=== PATIENT | male | born 1985 | race American Indian/Alaskan Native ===

== ENCOUNTER 2016-06-27 17:43 | Emergency (ER) | payer OTHER ==
[2016-06-27 19:09] LABS: CHLORIDE,CL 103 mmol/L (98-110); SODIUM,NA 139 mmol/L (136-146)
[2016-06-27] MEDS: Ketorolac 30 MG/ML SDV IVPUSH ONE (19:29)
--- NOTE | 2016-06-27 19:54 | EDM.PDOC ---
ED HPI GENERAL MEDICAL PROBLEM - General Chief Complaint: Flank Pain Stated Complaint: PT RT SIDE HURT Time Seen by Provider: 06/27/16 18:50 Source of Information: Reports: Patient - History of Present Illness INITIAL COMMENTS - FREE TEXT/NARRATIVE: HISTORY AND PHYSICAL: History of present illness: Patient is a thin 31-year-old male who presents to the emergency department for return of his right abdominal and flank pain. It started this morning when he woke up and has been persistent. He states he abdominal part of his pain as cramping it comes and goes his more flank and back pain has been constant. He denies any associated symptoms with this. He has had his appendix out. He denies fevers or chills. No nausea or vomiting. No pain with urination, penile discharge or blood in the urine. He has been here 3 or 4 times in the last several months for evaluation of this and seems frustrated that he states being told that it is "viral" or that they cannot find anything wrong. He has not followed up with primary care. He states he has an appointment on the . He takes Klonopin for his anxiety and has used a little bit of Tylenol for his symptoms which didn't really help. Review of systems: As per history of present illness and below otherwise all systems reviewed and negative. Past medical history: As per history of present illness and as reviewed below otherwise noncontributory. Surgical history: As per history of present illness and as reviewed below otherwise noncontributory. Social history: No reported history of drug or alcohol abuse. Family history: As per history of present illness and as reviewed below otherwise noncontributory. Physical exam: HEENT: Atraumatic, normocephalic, pupils reactive, negative for conjunctival pallor or scleral icterus, mucous membranes moist, throat clear, neck supple, nontender, trachea midline. Lungs: Clear to auscultation, breath sounds equal bilaterally, chest nontender. Heart: S1S2, regular, negative for clicks, rubs, or JVD. Abdomen: Soft, nondistended, right lower quadrant tenderness. Right CVA tenderness. Back: No deformities or abnormalities although the patient does complain of tenderness in the low back with palpation. His reaction seemed out of proportion to my evaluation. Pelvis: Stable nontender. Genitourinary: Deferred. Rectal: Deferred. Extremities: Atraumatic. Neurovascular unremarkable. Neuro: Awake, alert, oriented. Cranial nerves II through XII unremarkable. Cerebellum unremarkable. Motor and sensory unremarkable throughout. Exam nonfocal. Diagnostics: UA, CBC, CMP Therapeutics: Toradol, diclofenac Impression: Chronic abdominal and flank pain Plan: Patient normal vital signs and somewhat unremarkable exam with an appendectomy. Urine was clear and her blood work was completely normal. This is the third fourth time he has been seen for these symptoms I do not feel an additional CT scan is warranted. I the patient needs followup with primary care and then determine if he needs urology followup for GI do not feel there is any emergent or infectious cause of the symptoms that need further management. I did give him diclofenac to help with symptoms. Definitive disposition and diagnosis as appropriate pending reevaluation and review of above. - Related Data Allergies Allergy/AdvReac Type Severity Reaction Status Date / Time codeine Allergy Hives Verified 06/27/16 17:58 Home Meds: Home Meds ClonazePAM [KlonoPIN] 1 tab PO PRN 12/24/15 [History] Past Medical History HEENT History: Reports: None Cardiovascular History: Reports: Heart murmur Respiratory History: Reports: None Gastrointestinal History: Reports: Other (see below) Other Gastrointestinal History: perforated ulcer Neurological History: Reports: None Psychiatric History: Reports: ADD, Anxiety, Depression Endocrine/Metabolic History: Reports: None Dermatologic History: Reports: None - Past Surgical History HEENT Surgical History: Reports: None Other GI Surgeries/Procedures: explor lap Social & Family History - Family History Family Medical History: Noncontributory - Tobacco Use Smoking Status *Q: Current Every Day Smoker Years of Tobacco use: 15 Packs/Tins Daily: 1 Second Hand Smoke Exposure: No - Caffeine Use Caffeine Use: Reports: Tea - Alcohol Use Days Per Week of Alcohol Use: 5 Number of Drinks Per Day: 6 Total Drinks Per Week: 30 - Recreational Drug Use Recreational Drug Use: No ED ROS GENERAL - Review of Systems Review Of Systems: ROS reveals no pertinent complaints other than HPI. ED EXAM, GENERAL - Physical Exam Exam: See Below (See history of present illness) Course - Vital Signs Last Recorded V/S: Last Vital Signs Temp 37.7 C 06/27/16 19:50 Pulse 61 06/27/16 19:50 Resp 18 06/27/16 17:58 BP 132/78 06/27/16 19:50 Pulse Ox 95 06/27/16 17:58 - Orders/Labs/Meds Labs: Laboratory Tests 06/27/16 06/27/16 06/27/16 Range/Units 18:30 18:30 18:30 WBC 7.60 (4.0-11.0) K/uL RBC 4.58 (4.50-5.90) M/uL Hgb 14.8 (13.0-17.0) g/dL Hct 43.5 (38.0-50.0) % MCV 95.0 (80.0-98.0) fL MCH 32.3 H (27.0-32.0) pg MCHC 34.0 (31.0-37.0) g/dL RDW Std Deviation 46.0 (28.0-62.0) fl RDW Coeff of Buck 13 (11.0-15.0) % Plt Count 202 (150-400) K/uL MPV 9.30 (7.40-12.00) fL Neut % (Auto) 61.3 (48.0-80.0) % Lymph % (Auto) 25.3 (16.0-40.0) % [place] % (Auto) 10.4 (0.0-15.0) % Eos % (Auto) 2.6 (0.0-7.0) % Baso % (Auto) 0.4 (0.0-1.5) % Neut # (Auto) 4.7 (1.4-5.7) K/uL Lymph # (Auto) 1.9 (0.6-2.4) K/uL [place] # (Auto) 0.8 (0.0-0.8) K/uL Eos # (Auto) 0.2 (0.0-0.7) K/uL Baso # (Auto) 0.0 (0.0-0.1) K/uL Nucleated RBC % 0.0 /100WBC Nucleated RBCs # 0 K/uL Sodium 139 (136-146) mmol/L Potassium 3.9 (3.5-5.1) mmol/L Chloride 103 (98-110) mmol/L Carbon Dioxide 26 (21-31) mmol/L BUN 11 (6.0-23.0) mg/dL Creatinine 1.0 (0.6-1.5) mg/dL Est Cr Clr Drug Dosing 101.75 mL/min Estimated GFR (MDRD) > 60.0 ml/min Glucose 88 (60-110) mg/dL Calcium 8.9 (8.8-10.8) mg/dL Total Bilirubin 0.6 (0.1-1.5) mg/dL AST 20 (5-40) IU/L ALT 13 (8-54) IU/L Alkaline Phosphatase 77 (40-150) Total Protein 7.6 (6.0-8.0) g/dL Albumin 4.3 (3.5-5.0) g/dL Globulin 3.3 (2.0-3.5) g/dL Albumin/Globulin Ratio 1.3 (1.3-2.8) Urine Color YELLOW Urine Appearance CLEAR Urine pH 7.0 (5.0-8.0) Ur Specific [place] 1.010 (1.001-1.035) Urine Protein NEGATIVE (NEGATIVE) mg/dL Urine Glucose (UA) NEGATIVE (NEGATIVE) mg/dL Urine Ketones NEGATIVE (NEGATIVE) mg/dL Urine Occult Blood NEGATIVE (NEGATIVE) Urine Nitrite NEGATIVE (NEGATIVE) Urine Bilirubin NEGATIVE (NEGATIVE) Urine Urobilinogen 0.2 (<2.0) EU/dL Ur Leukocyte Esterase NEGATIVE (NEGATIVE) Urine RBC 0-1 (0-2/HPF) Urine WBC 0-1 (0-5/HPF) Ur Epithelial Cells RARE (NONE-FEW) Urine Bacteria RARE (NEGATIVE) Meds: Medications Discontinued Medications Generic Name Dose Route Start Last Admin Trade Name Freq PRN Reason Stop Dose Admin Ketorolac Tromethamine 30 mg 06/27/16 19:24 06/27/16 19:29 Toradol IVPUSH 06/27/16 19:25 30 mg ONETIME ONE Administration Departure - Departure Time of Disposition: 19:53 Disposition: Home, Self-Care 01 Condition: good Clinical Impression: Chronic right flank pain Instructions: Flank Pain, [id number] Referrals: PCP,None [Primary Care Provider] - Forms: ED Department Discharge Additional Instructions: The following information is given to patients seen in the emergency department who are being discharged to home. This information is to outline your options for follow-up care. We provide all patients seen in our emergency department with a follow-up referral. The need for follow-up, as well as the timing and circumstances, are variable depending upon the specifics of your emergency department visit. If you don't have a primary care physician on staff, we will provide you with a referral. We always advise you to contact your personal physician following an emergency department visit to inform them of the circumstance of the visit and for follow-up with them and/or the need for any referrals to a consulting specialist. The emergency department will also refer you to a specialist when appropriate. This referral assures that you have the opportunity for follow-up care with a specialist. All of these measure are taken in an effort to provide you with optimal care, which includes your follow-up. Under all circumstances we always encourage you to contact your private physician who remains a resource for coordinating your care. When calling for follow-up care, please make the office aware that this follow-up is from your recent emergency room visit. If for any reason you are refused follow-up, please contact the [facility] Emergency Department at and asked to speak to the emergency department charge nurse. [facility] [address] [place] [id number]
[2016-06-27 20:45] VITALS: BP 135/77
== END 2016-06-27 20:10 | disposition home or self-care (01) ==
LOC: MW.ED 17:43
DX: R10.9 Unspecified abdominal pain (principal); G89.29 Other chronic pain; F41.8 Other specified anxiety disorders; F17.210 Nicotine dependence, cigarettes, uncomplicated; Z88.5 Allergy status to narcotic agent
CPT/HCPCS: 36415; 80053; 81001; 85025; 96374; 99284; J1885

== ENCOUNTER 2016-09-03 10:31 | Emergency (ER) | payer OTHER ==
--- NOTE | 2016-09-03 10:59 | EDM.PDOC ---
ED HPI GENERAL MEDICAL PROBLEM - General Chief Complaint: General Stated Complaint: PAIN IN SIDE Time Seen by Provider: 09/03/16 10:40 Source of Information: Reports: Patient History Limitations: Reports: No Limitations - History of Present Illness INITIAL COMMENTS - FREE TEXT/NARRATIVE: History of present illness: [31-year-old male coming in complaining of right-sided flank pain. Patient indicates that he has come to be seen repeatedly for this pain and that won't go away and it just gets worse and he desires further evaluation.] Review of systems: As per history of present illness and below otherwise all systems reviewed and negative. Past medical history: As per history of present illness and as reviewed below otherwise noncontributory. Surgical history: As per history of present illness and as reviewed below otherwise noncontributory. Social history: No reported history of drug or alcohol abuse. Family history: As per history of present illness and as reviewed below otherwise noncontributory. Physical exam: HEENT: Atraumatic, normocephalic, pupils reactive, negative for conjunctival pallor or scleral icterus, mucous membranes moist, throat clear, neck supple, nontender, trachea midline. Lungs: Clear to auscultation, breath sounds equal bilaterally, chest nontender. Heart: S1S2, regular, negative for clicks, rubs, or JVD. Abdomen: Soft, nondistended, nontender. Negative for masses or hepatosplenomegaly. Negative for costovertebral tenderness. Pelvis: Stable nontender. Genitourinary: Deferred. Rectal: Deferred. Extremities: Atraumatic, negative for cords or calf pain. Neurovascular unremarkable. Neuro: Awake, alert, oriented. Cranial nerves II through XII unremarkable. Cerebellum unremarkable. Motor and sensory unremarkable throughout. Exam nonfocal. Patient indicates that right side is to painful for palpation and that the pain has been off and on for several months but that now the tenderness is exquisite and he can't tolerate it any longer. Light of the negative CT and patient's very physical labor pain comes and goes and can be quite sharp would be consistent with muscle pain Diagnostics: [CBC, CMP, CT of abdomen and pelvis] Therapeutics: [] Impression: [Muscle spasm] Plan: [Muscle relaxer followup with PCP] Definitive disposition and diagnosis as appropriate pending reevaluation and review of above. right flank pain Pain Score (Numeric/FACES): 6 - Related Data Allergies Allergy/AdvReac Type Severity Reaction Status Date / Time codeine Allergy Hives Verified 09/03/16 10:43 Home Meds: Home Meds ClonazePAM [KlonoPIN] 1 mg PO DAILY PRN 12/24/15 [History] Past Medical History HEENT History: Reports: None Cardiovascular History: Reports: Heart Murmur Respiratory History: Reports: None Gastrointestinal History: Reports: Other (See Below) Other Gastrointestinal History: "perf ulcer" Neurological History: Reports: None Psychiatric History: Reports: ADD, Anxiety, Depression Endocrine/Metabolic History: Reports: None Dermatologic History: Reports: None - Past Surgical History HEENT Surgical History: Reports: None Social & Family History - Family History Family Medical History: Noncontributory - Tobacco Use Smoking Status *Q: Current Every Day Smoker Years of Tobacco use: 10 Packs/Tins Daily: 0.5 Second Hand Smoke Exposure: No - Caffeine Use Caffeine Use: Reports: Soda - Alcohol Use Days Per Week of Alcohol Use: 5 Number of Drinks Per Day: 6 Total Drinks Per Week: 30 - Recreational Drug Use Recreational Drug Use: No ED ROS GENERAL - Review of Systems Review Of Systems: See Below (History of present illness) ED EXAM, GENERAL - Physical Exam Exam: See Below (See history of present illness) Course - Vital Signs Last Recorded V/S: Last Vital Signs Temp 37.1 C 09/03/16 10:45 Pulse 102 H 09/03/16 10:45 Resp 18 09/03/16 10:45 BP 139/95 H 09/03/16 10:45 Pulse Ox 98 09/03/16 10:45 - Orders/Labs/Meds Orders: Active Orders 24 hr Category Date Time Status Abdomen Pelvis wo Cont [CT] Stat Exams 09/03/16 11:00 Taken Labs: Laboratory Tests 09/03/16 09/03/16 09/03/16 Range/Units 11:13 11:13 12:01 WBC 5.22 (4.0-11.0) K/uL RBC 4.93 (4.50-5.90) M/uL Hgb 16.2 (13.0-17.0) g/dL Hct 47.0 (38.0-50.0) % MCV 95.3 (80.0-98.0) fL MCH 32.9 H (27.0-32.0) pg MCHC 34.5 (31.0-37.0) g/dL RDW Std Deviation 46.0 (28.0-62.0) fl RDW Coeff of Buck 13 (11.0-15.0) % Plt Count 199 (150-400) K/uL MPV 9.20 (7.40-12.00) fL Neut % (Auto) 72.8 (48.0-80.0) % Lymph % (Auto) 17.6 (16.0-40.0) % [place] % (Auto) 7.3 (0.0-15.0) % Eos % (Auto) 1.9 (0.0-7.0) % Baso % (Auto) 0.4 (0.0-1.5) % Neut # (Auto) 3.8 (1.4-5.7) K/uL Lymph # (Auto) 0.9 (0.6-2.4) K/uL [place] # (Auto) 0.4 (0.0-0.8) K/uL Eos # (Auto) 0.1 (0.0-0.7) K/uL Baso # (Auto) 0.0 (0.0-0.1) K/uL Nucleated RBC % 0.0 /100WBC Nucleated RBCs # 0 K/uL Sodium 140 (136-146) mmol/L Potassium 4.0 (3.5-5.1) mmol/L Chloride 107 (98-110) mmol/L Carbon Dioxide 20 L (21-31) mmol/L BUN 11 (6.0-23.0) mg/dL Creatinine 1.0 (0.6-1.5) mg/dL Est Cr Clr Drug Dosing 97.02 mL/min Estimated GFR (MDRD) > 60.0 ml/min Glucose 92 (60-110) mg/dL Calcium 8.9 (8.8-10.8) mg/dL Total Bilirubin 0.5 (0.1-1.5) mg/dL AST 23 (5-40) IU/L ALT 17 (8-54) IU/L Alkaline Phosphatase 92 (40-150) Total Protein 8.0 (6.0-8.0) g/dL Albumin 4.9 (3.5-5.0) g/dL Globulin 3.1 (2.0-3.5) g/dL Albumin/Globulin Ratio 1.6 (1.3-2.8) Urine Color YELLOW Urine Appearance CLEAR Urine pH 5.5 (5.0-8.0) Ur Specific [place] 1.025 (1.001-1.035) Urine Protein NEGATIVE (NEGATIVE) mg/dL Urine Glucose (UA) NEGATIVE (NEGATIVE) mg/dL Urine Ketones NEGATIVE (NEGATIVE) mg/dL Urine Occult Blood NEGATIVE (NEGATIVE) Urine Nitrite NEGATIVE (NEGATIVE) Urine Bilirubin NEGATIVE (NEGATIVE) Urine Urobilinogen 0.2 (<2.0) EU/dL Ur Leukocyte Esterase NEGATIVE (NEGATIVE) Urine RBC 0-1 (0-2/HPF) Urine WBC 0-1 (0-5/HPF) Ur Epithelial Cells OCCASIONAL (NONE-FEW) Amorphous Sediment LIGHT (NEGATIVE) Urine Bacteria FEW (NEGATIVE) Urine Mucus MODERATE (NONE-MOD) Meds: Medications Discontinued Medications Generic Name Dose Route Start Last Admin Trade Name Freq PRN Reason Stop Dose Admin Sodium Chloride 1,000 mls @ 999 mls/hr 09/03/16 11:00 09/03/16 11:16 Normal Saline IV 09/03/16 12:00 999 mls/hr STAT ONE Administration Ketorolac Tromethamine 30 mg 09/03/16 11:00 09/03/16 11:15 Toradol IVPUSH 09/03/16 11:01 30 mg ONETIME ONE Administration Departure - Departure Time of Disposition: 12:26 Disposition: Home, Self-Care 01 Condition: good Clinical Impression: Chronic right flank pain - Discharge Information Forms: ED Department Discharge Additional Instructions: The following information is given to patients seen in the emergency department who are being discharged to home. This information is to outline your options for follow-up care. We provide all patients seen in our emergency department with a follow-up referral. The need for follow-up, as well as the timing and circumstances, are variable depending upon the specifics of your emergency department visit. If you don't have a primary care physician on staff, we will provide you with a referral. We always advise you to contact your personal physician following an emergency department visit to inform them of the circumstance of the visit and for follow-up with them and/or the need for any referrals to a consulting specialist. The emergency department will also refer you to a specialist when appropriate. This referral assures that you have the opportunity for follow-up care with a specialist. All of these measure are taken in an effort to provide you with optimal care, which includes your follow-up. Under all circumstances we always encourage you to contact your private physician who remains a resource for coordinating your care. When calling for follow-up care, please make the office aware that this follow-up is from your recent emergency room visit. If for any reason you are refused follow-up, please contact the [facility] Emergency Department at and asked to speak to the emergency department charge nurse. Take medication as directed Followup with PCP in one to 2 days Return to ED as needed as discussed - My Orders Last 24 Hours: My Active Orders 09/03/16 11:00 Abdomen Pelvis wo Cont [CT] Stat - Assessment/Plan Last 24 Hours: My Active Orders 09/03/16 11:00 Abdomen Pelvis wo Cont [CT] Stat
[2016-09-03] MEDS ORDERED: Sodium Chloride 0.9% 1,000 ML IV ONE (11:00)
[2016-09-03] MEDS ORDERED: Ketorolac 30 MG/ML SDV IVPUSH ONE (11:00)
[2016-09-03 11:45] LABS: CHLORIDE,CL 107 mmol/L (98-110); SODIUM,NA 140 mmol/L (136-146)
[2016-09-03 12:40] VITALS: BP 135/83
--- NOTE | 2016-09-04 14:01 | CT ---
EXAM DATE: 09/03/16 PATIENT'S AGE: 31 Patient: NAN ALAN Facility: [place], [place] Site . Site : 1985 Study: CT Abdomen/Pelvis [id number]/29/2017 11:30:25 AM Ordering Physician: Doctor Brasher Final Report: INDICATION: RT SIDED FLANK PAIN STARTED THIS AM BUT HAS BEEN SYMPTOMATIC OFF AND ON SINCE APRIL TECHNIQUE: Helical scans obtained through the abdomen and pelvis after administration of intravenous contrast. COMPARISON: CT scan abdomen and pelvis dated 04/27/2016. FINDINGS: 1. The liver, spleen, adrenals, pancreas and gallbladder appear normal. 2. The kidneys are normal without calculi, masses or hydronephrosis. No ureteral stones are seen. There is a phlebolith in the lower left pelvis. Bladder is unremarkable. Prostate gland is normal size. 3. The appendix is not identified. No tubular structure in the right lower quadrant suggestive of an inflamed, edematous appendix. No inflammatory changes or masses involving the bowel. 4. No evidence for hernias or adenopathy. 5. Transitional lumbosacral vertebra. 6. Lung bases are clear. IMPRESSION: Negative abdominal CT. Etiology for right-sided flank pain is not identified. Dictated by Kevin Baum MD @ 09/03/2016 11:52:18 AM Dictated by: Kevin Baum MD @ 09/03/2016 11:52:26 (Electronic Signature) Report Signed by Proxy. [facility]ERTamara
== END 2016-09-03 12:38 | disposition home or self-care (01) ==
LOC: MW.ED 10:31
DX: R10.9 Unspecified abdominal pain (principal); G89.29 Other chronic pain; F41.9 Anxiety disorder, unspecified; F32.9 Major depressive disorder, single episode, unspecified; F17.210 Nicotine dependence, cigarettes, uncomplicated; Z88.5 Allergy status to narcotic agent; Z79.899 Other long term (current) drug therapy
CPT/HCPCS: 36415; 74176; 80053; 81001; 85025; 96361; 96374; 99284; J1885; J7040

== ENCOUNTER 2017-07-01 06:31 | Day surgery (SDC) | payer OTHER ==
[~2017-07-01 06:31] MED LIST: Lactated Ringers 1,000 ML IV SCH; ceFAZolin 1 GM in Premix Bag 1 BAG IV ONE
--- NOTE | 2017-07-01 06:55 | PCM.PREANE ---
Preanesthetic Assessment - Anesthesia/Transfusion/Family Hx Anesthesia History: Prior Anesthesia Without Reaction Family History of Anesthesia Reaction: No Transfusion History: No Prior Transfusion(s) Intubation History: Unknown - Review of Systems General: No Symptoms Pulmonary: No Symptoms Cardiovascular: No Symptoms Gastrointestinal: No Symptoms Neurological: No Symptoms Other: Reports: None - Physical Assessment O2 Sat by Pulse Oximetry: 99 Respiratory Rate: 16 Vital Signs: Last Vital Signs Temp 36.6 C 07/01/17 06:50 Pulse 59 L 07/01/17 06:50 Resp 16 07/01/17 06:50 BP 126/69 07/01/17 06:50 Pulse Ox 99 07/01/17 06:50 Height: 1.73 m Weight: 63.049 kg ASA Class: 2 Mental Status: Alert & Oriented x3 Airway Class: Mallampati = 2 Dentition: Reports: Missing Tooth/Teeth (all upper teeth missing ( accident - hit by plastic pipe)) Thyro-Mental Finger Breadths: 3 Mouth Opening Finger Breadths: 3 ROM/Head Extension: Full Lungs: Clear to Auscultation, Normal Respiratory Effort Cardiovascular: Regular Rate, Regular Rhythm - Allergies Allergies/Adverse Reactions: Allergies Allergy/AdvReac Type Severity Reaction Status Date / Time codeine Allergy Hives Verified 06/26/17 10:58 - Blood Blood Available: No - Anesthesia Plan Pre-Op Medication Ordered: None - Acknowledgements Anesthesia Type Planned: General Anesthesia Pt an Appropriate Candidate for the Planned Anesthesia: Yes Alternatives and Risks of Anesthesia Discussed w Pt/Guardian: Yes Pt/Guardian Understands and Agrees with Anesthesia Plan: Yes PreAnesthesia Questionnaire HEENT History: Reports: None Cardiovascular History: Respiratory History: Reports: None Gastrointestinal History: Reports: Other (See Below) Other Gastrointestinal History: hx perferated gastric ulcer '08 Neurological History: Reports: Concussion Psychiatric History: Reports: ADD, Anxiety, Depression Endocrine/Metabolic History: Dermatologic History: - Past Surgical History Head Surgeries/Procedures: Reports: None HEENT Surgical History: Reports: None GI Surgical History: Reports: Other (See Below) Other GI Surgeries/Procedures: exploratory laparotomy for repair of perforated ulcer - SUBSTANCE USE Smoking Status *Q: Current Every Day Smoker (1 ppd) Tobacco Use Within Last Twelve Months: Cigarettes Second Hand Smoke Exposure: No Days Per Week of Alcohol Use: 5 Number of Drinks Per Day: 6 Total Drinks Per Week: 30 Recreational Drug Use History: No - HOME MEDS Home Medications: Home Meds Dextroamphetamine [Dexedrine] 15 mg PO BID 06/26/17 [History] Hydrocodone/Acetaminophen [Hydrocodon-Acetaminophen 5-325] 1 tab PO BID PRN [History] hydrOXYzine HCl [hydrOXYzine] 25 mg PO BEDTIME PRN 06/26/17 [History] - CURRENT (IN HOUSE) MEDS Current Meds: Current Medications Lactated Ringer's (Ringers, Lactated) 1,000 mls @ 125 mls/hr IV [facility] Last Admin: 07/01/17 06:51 Dose: 125 mls/hr Discontinued Medications Cefazolin Sodium/Dextrose 1 gm (/ Premix) 50 mls @ 100 mls/hr IV ONETIME ONE Stop: 07/01/17 06:29
[2017-07-01] MEDS ORDERED: ceFAZolin 1 GM Vial ONE (07:18)
[2017-07-01] MEDS ORDERED: Bupivacaine 0.5% 10 ML SDV ONE (07:18)
[2017-07-01] MEDS ORDERED: Propofol 200 MG/20 ML SDV ONE (07:48)
[2017-07-01] MEDS ORDERED: Midazolam 1 MG/ML 2 ML SDV ONE (07:48)
[2017-07-01] MEDS ORDERED: fentaNYL 100 MCG/2 ML SDV ONE (07:48)
[2017-07-01] MEDS ORDERED: Lidocaine 2% 5 ML SDV ONE (07:48)
[2017-07-01] MEDS ORDERED: Ondansetron 4 MG/2 ML SDV ONE (08:31)
[2017-07-01] MEDS ORDERED: Ketorolac 30 MG/ML SDV ONE (08:31)
[2017-07-01] MEDS ORDERED: fentaNYL 100 MCG/2 ML SDV IVPUSH PRN (08:36)
[2017-07-01] MEDS ORDERED: Acetaminophen 1,000 MG in Premix Bag 1 BAG IV PRN (08:37)
[2017-07-01] MEDS ORDERED: Ondansetron 4 MG Tab.DIS PO PRN (08:48)
[2017-07-01] MEDS ORDERED: Acetaminophen/oxyCODONE 325-5 MG Tab PO PRN (08:48)
--- NOTE | 2017-07-01 08:57 | PCM.OPNOTE ---
- General Post-Op/Procedure Note Date of Surgery/Procedure: 07/01/17 Operative Procedure(s): Repair incarcerated umbilical hernia Pre Op Diagnosis: Incarcerated umbilical hernia Post-Op Diagnosis: Same Anesthesia Technique: General LMA (ASA II) Primary Surgeon: Nikhil Graf Fluid Replacement, Intraop: 1,300 EBL in mLs: 5 Condition: Good Free Text/Narrative:: Dictation [id number] CPT CODE [id number]
--- NOTE | 2017-07-01 09:46 | PCM.POSTAN ---
POST ANESTHESIA ASSESSMENT - MENTAL STATUS Mental Status: Alert, Oriented - RESPIRATORY Respiratory Status: Respiratory Rate WNL, Airway Patent, O2 Saturation Stable - CARDIOVASCULAR CV Status: Pulse Rate WNL, Blood Pressure Stable - GASTROINTESTINAL GI Status: No Symptoms - PAIN Pain Score: 5 - POST OP HYDRATION Hydration Status: Adequate & Stable - OBSERVATIONS Free Text/Narrative:: no anesthesia problems
[2017-07-01] MEDS ORDERED: oxyCODONE 5 MG Tab PO PRN (10:07)
--- NOTE | 2017-07-01 12:15 | OR ---
SURGEON: Nikhil Graf M.D. DATE OF PROCEDURE: 07/01/2017 OPERATION PERFORMED: Repair of incarcerated umbilical hernia. ANESTHESIA: General LMA. ASA CLASSIFICATION: II. PREOPERATIVE DIAGNOSIS: Incarcerated umbilical hernia. POSTOPERATIVE DIAGNOSIS: Incarcerated umbilical hernia. ESTIMATED BLOOD LOSS: 5 mL. INTRAOPERATIVE FLUID REPLACEMENT: 1300 mL of crystalloid. DESCRIPTION OF PROCEDURE: The patient was taken to the operating room and placed on the operating table in the supine position. Time-out was called for appropriate identification of the patient and procedure. Thigh-high TEDs and sequential compression boots were placed. Following satisfactory attainment of general anesthesia with placement of an LMA, the abdomen was prepped with DuraPrep solution and sterile drapes were applied. The skin beginning below, extending just to the right and superior to the umbilicus was infiltrated with 0.5% Marcaine solution. The skin incision was made and deepened through the subcutaneous tissue obtaining hemostasis with the use of electrocautery. The umbilicus was dissected away from the defect, which was approximately 4 mm in greatest dimension. The contents were reduced. The defect was then repaired with multiple interrupted 0 Ethibond sutures. All sutures were placed under direct vision and held with hemostats until the final suture had been placed. Once all sutures were tied, the patient was given a Valsalva maneuver to 30 cm of water. The repair was solid. The wound was inspected for hemostasis and small bleeding sites were electrocoagulated. The subcutaneous tissue was then reapproximated with 3-0 Vicryl and the skin with subcuticular 4-0 Monocryl. The incision was Steri- Stripped and dressed with a sterile Tegaderm pad. Sponge, needle, and instrument counts were all correct. The patient tolerated the procedure well. Following emergence from anesthesia and extubation, he was taken to recovery room in satisfactory condition. LIOR / ROMANA /[id number]
[2017-07-01 14:02] VITALS: BP 110/60
== END 2017-07-01 11:40 | disposition home or self-care (01) ==
LOC: MW.SDS 06:31
PROVIDERS: ATTEND Surgery
DX: K42.0 Umbilical hernia with obstruction, without gangrene (principal); F41.9 Anxiety disorder, unspecified; Z88.8 Allergy status to other drugs, medicaments and biological substances; Z79.899 Other long term (current) drug therapy; F17.210 Nicotine dependence, cigarettes, uncomplicated
CPT/HCPCS: 49587; A9270; J0690; J1885; J2250; J2405; J3010; J7120; J2704